=== PATIENT | female | born 1955 | race Caucasian/White ===

== ENCOUNTER 2018-10-03 12:11 | Emergency (ER) | payer OTHER ==
[~2018-10-03] VITALS: Wt 77.1 kg
[~2018-10-03 12:11] MED LIST: ATARAX25 MG PO; AUGMENTIN 875875 MG PO; CALCIUM + D 5001 TAB PO; ELIMITE 5%60 GM PO; LISINOPRIL/HCTZ1 TA3 PO; NKHM; PREDNISONE10 MG PO; PREDNISONE20 MG PO; VIBRAMYCIN100 MG PO; VICODIN 5/500 505 MG PO; XANAX0.25 MG PO; ZITHROMAX Z PA250 MG PO; ZOCOR20 MG PO
[2018-10-03 12:12] VITALS: BP 159/84
[2018-10-03] MEDS ORDERED: NAPROSYN500 MG PO (12:27)
[2018-10-03] MEDS ORDERED: Peridex 473 ML473 ML PO (12:27)
[2018-10-03] MEDS ORDERED: ZOFRAN4 MG PO (12:27)
[2018-10-03] MEDS ORDERED: CLINDAMYCIN150 MG PO (12:27)
== END 2018-10-03 12:50 | disposition home or self-care (01) ==
LOC: ED 12:11
DX: K02.9 Dental caries, unspecified (principal); R03.0 Elevated blood-pressure reading, without diagnosis of hypertension; Z88.0 Allergy status to penicillin; Z79.899 Other long term (current) drug therapy

== ENCOUNTER → 2018-10-28 | Outpatient (CLI) | payer OTHER ==
[~2018-10-28] MED LIST changes: +CLINDAMYCIN150 MG PO; +NAPROSYN500 MG PO; +Peridex 473 ML473 ML PO; +ZOFRAN4 MG PO
== END | disposition home or self-care (01) ==
LOC: MAMMO 10:20
DX: Z12.31 Encounter for screening mammogram for malignant neoplasm of breast (principal)

== ENCOUNTER 2019-07-02 09:38 | Emergency (ER) | payer OTHER ==
[~2019-07-02] VITALS: Ht 167.6 cm; Wt 82.6 kg
[2019-07-02 09:39] VITALS: BP 152/81
[2019-07-02] MEDS ORDERED: DOXYCYCLINE100 M3 PO (10:06)
[2019-07-02] MEDS ORDERED: TESSALON PERLE100 MG PO (10:06)
[2019-07-02] MEDS ORDERED: DELTASONE20 M1 PO (10:06)
== END 2019-07-02 10:23 | disposition home or self-care (01) ==
LOC: ED 09:38
DX: J01.90 Acute sinusitis, unspecified (principal); J44.1 Chronic obstructive pulmonary disease with (acute) exacerbation; I10 Essential (primary) hypertension; E78.5 Hyperlipidemia, unspecified; F17.200 Nicotine dependence, unspecified, uncomplicated; Z88.0 Allergy status to penicillin; Z79.899 Other long term (current) drug therapy

== ENCOUNTER 2020-01-29 11:02 | Emergency (ER) | payer OTHER ==
[~2020-01-29] VITALS: Ht 167.6 cm; Wt 82.6 kg
[~2020-01-29 11:02] MED LIST changes: +DELTASONE20 M1 PO; +DOXYCYCLINE100 M3 PO; +TESSALON PERLE100 MG PO
[2020-01-29 11:09] VITALS: BP 158/76
[2020-01-29] MEDS ORDERED: IBUPROFEN600 MG PO (11:21)
[2020-01-29] MEDS ORDERED: CLINDAMYCIN HC300 MG PO (11:21)
== END 2020-01-29 11:34 | disposition home or self-care (01) ==
LOC: ED 11:02
DX: K02.9 Dental caries, unspecified (principal); I10 Essential (primary) hypertension; M81.0 Age-related osteoporosis without current pathological fracture; J44.9 Chronic obstructive pulmonary disease, unspecified; E78.00 Pure hypercholesterolemia, unspecified; F17.200 Nicotine dependence, unspecified, uncomplicated; Z88.0 Allergy status to penicillin; Z79.899 Other long term (current) drug therapy

== ENCOUNTER → 2021-03-06 | Outpatient (CLI) | payer MEDICARE, MEDICAID ==
[~2021-03-06] MED LIST changes: +CLINDAMYCIN HC300 MG PO; +IBUPROFEN600 MG PO
== END | disposition home or self-care (01) ==
LOC: MAMMO 15:17
PROVIDERS: ATTEND Internal Medicine
DX: Z12.31 Encounter for screening mammogram for malignant neoplasm of breast (principal)

== ENCOUNTER → 2023-01-21 | Outpatient (CLI) | payer OTHER, MEDICAID | END | disposition home or self-care (01) | LOC: MAMMO 00:57 | PROVIDERS: ATTEND Internal Medicine | DX: Z12.31 Encounter for screening mammogram for malignant neoplasm of breast (principal); Z12.2 Encounter for screening for malignant neoplasm of respiratory organs; F17.210 Nicotine dependence, cigarettes, uncomplicated; R91.1 Solitary pulmonary nodule ==

== ENCOUNTER → 2023-02-06 | Day surgery (SDC) | payer OTHER, MEDICAID ==
[~2023-02-06] VITALS: Ht 167.6 cm; Wt 87.5 kg
[~2023-02-06] MED LIST changes: +ASPIRIN81 M1 PO; +METOPROLOL SUCC50 M1 PO; +VITAMIN D325 MCG PO
[2023-02-06 09:16] VITALS: BP 119/67
[2023-02-06 11:00] VITALS: BP 106/50
[2023-02-06 11:15] VITALS: BP 118/68
[2023-02-06 11:30] VITALS: BP 116/63
[2023-02-06 14:38] VITALS: BP 106/50
== END | disposition home or self-care (01) ==
LOC: SDC 02-04 10:15
PROVIDERS: ATTEND Surgery
DX: Z12.11 Encounter for screening for malignant neoplasm of colon (principal); I10 Essential (primary) hypertension; J44.9 Chronic obstructive pulmonary disease, unspecified; M81.0 Age-related osteoporosis without current pathological fracture; F17.210 Nicotine dependence, cigarettes, uncomplicated; E78.00 Pure hypercholesterolemia, unspecified; F41.9 Anxiety disorder, unspecified; Z98.890 Other specified postprocedural states; Z79.899 Other long term (current) drug therapy

== ENCOUNTER → 2023-08-01 | Outpatient (CLI) | payer OTHER, MEDICAID | END | disposition home or self-care (01) | LOC: CT 07-18 14:00 | PROVIDERS: ATTEND Internal Medicine | DX: J43.2 Centrilobular emphysema (principal); R91.1 Solitary pulmonary nodule ==

== ENCOUNTER → 2024-04-21 | Outpatient (CLI) | payer OTHER, MEDICAID ==
[~2024-04-21] MED LIST changes: +IOHEXOL 300 MG/ML 100 ML VIAL IV ONE
== END | disposition home or self-care (01) ==
LOC: CT 00:18
PROVIDERS: ATTEND Physician Assistant
DX: R91.8 Other nonspecific abnormal finding of lung field (principal); J43.9 Emphysema, unspecified; R05.9 Cough, unspecified; Z87.891 Personal history of nicotine dependence; J44.9 Chronic obstructive pulmonary disease, unspecified; I10 Essential (primary) hypertension

== ENCOUNTER → 2024-05-04 | Outpatient (CLI) | payer OTHER, MEDICAID ==
[~2024-05-04] MED LIST changes: +ALBUTEROL PO; +DIAZEPAM2 MG PO; -IOHEXOL 300 MG/ML 100 ML VIAL IV ONE; +MELATONIN5 M6 PO; +Regadenoson 0.4 MG/5 ML SYR IV ONE
== END | disposition home or self-care (01) ==
LOC: CARD 01:54
PROVIDERS: ATTEND Internal Medicine Cardiovascular Disease
DX: I20.9 Angina pectoris, unspecified (principal); R94.31 Abnormal electrocardiogram [ECG] [EKG]

== ENCOUNTER → 2024-05-06 | Outpatient (CLI) | payer OTHER, MEDICAID ==
[~2024-05-06] MED LIST changes: -Regadenoson 0.4 MG/5 ML SYR IV ONE
== END | disposition home or self-care (01) ==
LOC: MAMMO 00:22
PROVIDERS: ATTEND Physician Assistant
DX: Z12.31 Encounter for screening mammogram for malignant neoplasm of breast (principal)

== ENCOUNTER → 2025-01-19 | Outpatient (CLI) | payer OTHER, MEDICAID ==
[2025-01-19 14:11] LABS: BASO # 0.1 10*3/uL (0.0-0.1); BASO % 1.3 % (0.0-1.0); EOS # 0.2 10*3/uL (0.0-0.4); EOS % 2.3 % (1.0-4.0); HEMATOCRIT 39.7 % (37.0-47.0); MEAN CELL VOLUME 91.3 fl (81.0-99.0); MEAN CORPUSCULAR HGB 30.6 pg (27.0-31.0); MEAN CORPUSCULAR HGB CONC 33.5 g/dl (33.0-37.0); MEAN PLATELET VOLUME 11.5 fl (9.6-12.3); MONO # 0.6 10*3/uL (0.1-1.0); MONO % 6.1 % (3.0-9.0); NEUT # 6.2 10*3/uL (2.3-7.9); NEUT % 60.4 % (47.0-73.0); PLATELET COUNT AUTOMATED 286 10*3/uL (130-400); RED BLOOD COUNT 4.35 10*6/uL (4.10-5.10); RED CELL DISTRI WIDTH 13.4 % (0-14.5); WHITE BLOOD COUNT 10.2 10*3/uL (4.8-10.8)
[2025-01-19 14:37] LABS: ALKALINE PHOSPHATASE 118 U/L (46-116); BUN 14 mg/dl (9-23); CHLORIDE 104 mmol/L (98-107); SGPT/ALT 11 U/L (5-49)
== END | disposition home or self-care (01) ==
LOC: LAB 13:44
PROVIDERS: ATTEND Physician Assistant
DX: R94.31 Abnormal electrocardiogram [ECG] [EKG] (principal); F51.01 Primary insomnia

== ENCOUNTER → 2025-02-11 | Outpatient (CLI) | payer OTHER, MEDICAID | END | disposition home or self-care (01) | LOC: US 10:35 | PROVIDERS: ATTEND Physician Assistant | DX: E04.2 Nontoxic multinodular goiter (principal); R22.1 Localized swelling, mass and lump, neck ==

== ENCOUNTER → 2025-03-09 | Outpatient (CLI) | payer OTHER, MEDICAID ==
[~2025-03-09] MED LIST changes: +IOHEXOL 300 MG/ML 100 ML VIAL IV ONE; +IOHEXOL 300 MG/ML 100 ML VIAL ONE
== END | disposition home or self-care (01) ==
LOC: CT 13:52
PROVIDERS: ATTEND Physician Assistant
DX: J43.9 Emphysema, unspecified (principal); J98.11 Atelectasis; R91.8 Other nonspecific abnormal finding of lung field; R22.2 Localized swelling, mass and lump, trunk

== ENCOUNTER → 2025-04-12 | Outpatient (CLI) | payer OTHER, MEDICAID ==
[~2025-04-12] MED LIST changes: -IOHEXOL 300 MG/ML 100 ML VIAL ONE
== END | disposition home or self-care (01) ==
LOC: CT 12:31
PROVIDERS: ATTEND Physician Assistant
DX: J34.1 Cyst and mucocele of nose and nasal sinus (principal); R22.1 Localized swelling, mass and lump, neck

== ENCOUNTER → 2025-06-02 | Outpatient (CLI) | payer OTHER, MEDICAID ==
[~2025-06-02] MED LIST changes: +IOHEXOL 300 MG/ML 100 ML VIAL ONE
== END ==
LOC: CT 09:25
PROVIDERS: ATTEND Physician Assistant
DX: J43.9 Emphysema, unspecified (principal); N20.0 Calculus of kidney; J98.11 Atelectasis; R91.8 Other nonspecific abnormal finding of lung field